=== PATIENT | female | born 1985 | race Caucasian/White ===

== ENCOUNTER 2024-02-14 10:41 | Emergency (ER) | payer OTHER, SELFPAY ==
[2024-02-14 10:47] VITALS: BP 115/67
[2024-02-14] MEDS: AUGMENTIN 875 MG/125 MG 1 TABLET PO (11:39)
[2024-02-14] MEDS: TORADOL 30 MG IM (11:39)
--- NOTE | 2024-02-14 11:50 | ED.GENMED ---
History of Present Illness
General
Chief Complaint: Dental Problem
Source: patient
Exam Limitations: none
Time Seen by Provider: 02/14/24 11:04
Nursing documentation reviewed up to this point in time: agreed with
Travel History
Have you had any contact with someone who has COVID-19?: No
Do you have any symptoms of coronavirus? Fever > 100 degrees, chills, cough, shortness of breath, sore throat, loss of taste or smell, muscle aches, or headache?: No
History of Present Illness
History of Present Illness:
38-year-old female presenting to the emergency department today with concerns of left-sided upper mouth swelling discomfort. Denies any fevers trouble swallowing or breathing. She has not seen a dentist in multiple years. Just got dental
insurance recently.
Review of Systems
Review of Systems
Allergies reviewed?: Yes
All Other Systems: ROS reviewed and negative except as documented in HPI and ROS
Phy Exam
Physical Exam
Physical Exam:
GENERAL: Alert , in no apparent distress
EYE: pupils equal and reactive
NECK: Supple, no significant adenopathy.
ENT: 1 cm abscess to the left anterior maxillary region just above the incisor to the left side. o/p clr, mmm.
CARDIAC: Regular rate and rhythm .
LUNGS: Clear breath sounds bilaterally, no acute respiratory distress, no wheezes/rales/rhonchi
ABDOMEN: Soft, without focal tenderness, no r/g, no cvat
NEUROLOGICAL: Alert and oriented, no focal neuro deficits
SKIN: Warm and dry, skin intact.
MUSCULOSKELETAL: No edema, well perfused.
PSYCH: Normal and appropriate interaction.
Course
Orders/Labs/Results
Orders:
Orders
02/14/24 11:29
Amoxicillin 875 mg/Clav 125 mg [Augmentin 875 mg/125 mg] 1 tablet PO NOW STA
Ketorolac [Toradol] 30 mg IM NOW STA
Vital Signs
Initial and Last Documented VS:
Initial Vital Signs
Temp Pulse Resp BP Pulse Ox
98 F 73 20 115/67 98
02/14/24 10:47 02/14/24 10:47 02/14/24 10:47 02/14/24 10:47 02/14/24 10:47
Last Documented Vital Signs
Temp Pulse Resp BP Pulse Ox
98 F 73 20 115/67 98
02/14/24 10:47 02/14/24 10:47 02/14/24 10:47 02/14/24 10:47 02/14/24 10:47
Procedures
Incision/Drainage/Joint Aspiration
Left Superior Face:
Anethesia: 1% Lidocaine with Epi and other (20% benzocaine spray)
Type of procedure: drain and aspiration
Nature of site: abscess
Description of abscess: less than 3cm
Loculations broken up: Yes
How much fluid was obtained?: small amount
Fluid description: purulent
Treatment: left open for drainage
MDM/Problems Addressed
MDM/Problems Addressed:
38-year-old female presenting to the emergency department with a small abscess to the left anterior maxillary dental region. This was numbed and needle aspirated. Moderate amount of pus was drained. Patient tolerated well advised for outpatient
follow-up with dental and started on Augmentin. Return precautions given.
*Critical Care Note
Total Time (30-74mins, 75-104mins- exclusive of procedures): Not Applicable
ED Attending Note
-
Portions of this chart may have been created with voice recognition software.� Occasional wrong word or��sound alike� substitutions may have occurred due to the inherent limitations of voice recognition software.
Discharge Plan
Departure
Patient Disposition: Home (Routine Discharge)
Date of Disposition: 02/14/24
Time of Disposition: 11:55
Patient with high blood pressure during this ER visit?: No
Condition: Good
Covid-19: Not Applicable
Discharge Problem:
Dental abscess
Instructions: Tooth Abscess (DC)
Prescriptions:
New
amoxicillin-pot clavulanate 875-125 mg tablet
1 tab PO BID 7 Days Qty: 14 0RF
Referrals:
NONE,* [Family Provider] -
Activity Restrictions/Additional Instructions:
You came to the emergency department today with concerns of dental abscess. Please use warm compresses to the area and follow closely with a dentist. Please also take Augmentin twice daily for neck 7 days. Return to the emergency department for
any worsening, new or concerning symptoms.
Interventions
Interventions:
*Risk Screen - Suicide Last Done: 02/14/24 10:47
*General Assessment Last Done: 02/14/24 10:47
*Neglect/Abuse Screening Last Done: 02/14/24 10:47
Discharge Date and Time
Print Language: SPANISH
== END 2024-02-14 12:00 | disposition home or self-care (01) ==
LOC: EMR 10:41
PROVIDERS: EMERGENCY PHYSICIAN Emergency Medicine
DX: K04.7 Periapical abscess without sinus (principal)
CPT/HCPCS: 99284; 41800; 96372